=== PATIENT | female | born 1980 | race African-American/Black ===

== ENCOUNTER 2016-12-09 10:15 | Emergency (ER) | payer OTHER ==
[2016-12-09 10:48] LABS: Basophils % (Auto) 0.6 % (0.0-1.8); Eosinophils % (Auto) 3.4 % (0.0-4.3); Hematocrit 41.5 % (30.3-42.9); Hemoglobin 13.7 gm/dl (10.1-14.3); Mean Corpuscular HGB Conc 33 % (30-34); Mean Corpuscular Hemoglobin 30 pg (28-32); Mean Corpuscular Volume 92 fl (79-97); Platelet Count 263 K/mm3 (140-440); Red Blood Count 4.53 M/mm3 (3.65-5.03); Red Cell Distribution Width 13.5 % (13.2-15.2); White Blood Count 9.5 K/mm3 (4.5-11.0)
[2016-12-09 11:05] LABS: Alanine Aminotransferase 8 units/L (7-56); Albumin 3.9 g/dL (3.9-5); Albumin/Globulin Ratio 1.3 %; Alkaline Phosphatase 70 units/L (35-129); Anion Gap 14 mmol/L; Bilirubin,Total 0.3 mg/dL (0.1-1.2); Blood Urea Nitrogen 7 mg/dL (7-17); Carbon Dioxide 23 mmol/L (22-30); Chloride 102.6 mmol/L (98-107); Glucose 84 mg/dL (65-100); Potassium 3.6 mmol/L (3.6-5.0); Sodium 136 mmol/L (137-145)
[2016-12-09] MEDS ORDERED: ZOFRAN ODT PO ONE (11:44)
--- NOTE | 2016-12-09 11:52 | Emergency Department Report ---
HPI - General Chief Complaint: Weakness Time Seen by Provider: 12/09/16 11:38 - HPI HPI: This is a 35-year-old female presents to the emergency department with a one- week history of some intermittent generalized weakness and dizziness and fatigue. She is also having some intermittent episodes of nausea and vomiting. She denies any abdominal pain, headache, vision change, chest pain, shortness of breath, vaginal discharge or bleeding or dysuria. She is not taken anything for symptoms prior to presentation. The patient says she is concerned that she could be has these type of symptoms have preceded previous pregnancies. She has a history of a tubal ligation reversal from one year ago as well as a miscarriage in May 2016. Her last menstrual cycle was on November 10. She has not had a primary care doctor or [employer]. No recent travel or sick contacts at home. ED Past Medical Hx - Past Medical History Previous Medical History?: Yes Additional medical history: Miscarriage , Vaginal delivery x 3 - Surgical History Past Surgical History?: Yes Additional Surgical History: CONIZATION, Reversal of tubaligation - Social History Smoking Status: Never Smoker Substance Use Type: None - Medications Home Medications: Home Medications Medication Instructions Recorded Confirmed Last Taken Type Ibuprofen [Motrin] 600 mg PO Q8H PRN #30 tablet 11/26/14 Unknown Rx traMADol [Ultram] 50 mg PO Q6HR PRN #14 tablet 11/26/14 Unknown Rx Ondansetron [Zofran Odt] 4 mg PO Q8H PRN #10 tab.rapdis 12/09/16 Unknown Rx ED Review of Systems ROS: Stated complaint: DIZZINESS/NAUSEA/FATIGUE Other details as noted in HPI Comment: All other systems reviewed and negative Constitutional: weakness. denies: chills, fever Eyes: denies: eye pain, eye discharge, vision change ENT: denies: ear pain, throat pain Respiratory: denies: cough, shortness of breath, wheezing Cardiovascular: denies: chest pain, palpitations Gastrointestinal: nausea, vomiting Genitourinary: denies: urgency, dysuria, discharge Musculoskeletal: denies: back pain, joint swelling, arthralgia Skin: denies: rash, lesions Neurological: other (dizzy/lightheaded). denies: headache, weakness, paresthesias Physical Exam - Physical Exam Vital Signs: Vital Signs 12/09/16 10:20 Temperature 98.6 F Pulse Rate 71 Respiratory 18 Rate Blood Pressure 115/75 O2 Sat by Pulse 100 Oximetry Physical Exam: GENERAL: The patient is well-developed well-nourished. HEENT: Normocephalic. Atraumatic. Extraocular motions are intact. Patient has moist mucous membranes. Pupils equal reactive to light bilaterally. NECK: Supple. Trachea is midline. CHEST/LUNGS: Clear to auscultation. There is no respiratory distress noted. HEART/CARDIOVASCULAR: Regular. There is no tachycardia. There is no gallop rub or murmur. ABDOMEN: Abdomen is soft, nontender. Patient has normal bowel sounds. There is no abdominal distention. SKIN: There is no rash. There is no edema. There is no diaphoresis. NEURO: The patient is awake, alert, and oriented. The patient is cooperative. The patient has no focal neurologic deficits. The patient has normal speech and gait. Cranial nerves II through XII grossly intact. No pronator drift. No dysmetria. MUSCULOSKELETAL: There is no tenderness or deformity. There is no limitation range of motion. There is no evidence of acute injury. Muscle strength 5 out of 5 upper and lower semis bilaterally. ED Course Vital Signs 12/09/16 10:20 Temperature 98.6 F Pulse Rate 71 Respiratory 18 Rate Blood Pressure 115/75 O2 Sat by Pulse 100 Oximetry ED Medical Decision Making - Lab Data Result diagrams: 12/09/16 10:33 12/09/16 10:33 - EKG Data -: EKG Interpreted by Mo EKG shows normal: sinus rhythm (with sinus arrhythmia), axis, intervals, QRS complexes, ST-T waves Rate: normal - EKG Data When compared to previous EKG there are: previous EKG unavailable Interpretation: normal EKG (with sinus arrhythmia) - Medical Decision Making 35-year-old female presents with a week of nonspecific weakness and dizziness and fatigue as well as some recent nausea and vomiting. Patient was given a single dose of Zofran and the nausea has resolved and there has been no vomiting in the emergency department. EKG shows sinus arrhythmia but otherwise no signs of ischemia or ST elevation IN. The patient's labs are mostly unremarkable. Normal thyroid function. No signs of infection in the blood or urine. Patient is not and this was checked by urine and serum quantitative levels. The patient does not have any signs of neurological deficit. There is no focal, motor or sensory deficits in her cranial nerves are intact. This all could be some viral syndrome or nonspecific symptoms. The patient will be discharged home with a referral for primary care. She'll return to the ER with any worsening of her symptoms or any acute distress. - Differential Diagnosis viral syndrome, hypothyroidism, Critical Care Time: No Critical care attestation.: If time is entered above; I have spent that time in minutes in the direct care of this critically ill patient, excluding procedure time. ED Disposition Clinical Impression: Weakness, Dizziness Nausea & vomiting Qualifiers: Vomiting type: unspecified Vomiting Intractability: non-intractable Qualified Code(s): R11.2 - Nausea with vomiting, unspecified Disposition: DISCHARGED TO HOME OR SELFCARE Is pt being admited?: No Condition: Stable Instructions: Acute Nausea and Vomiting (ED), Dizziness (ED), Lightheadedness ( ED) Additional Instructions: Please follow-up with a primary care doctor the next few days. Return to the emergency department with any worsening of your symptoms or any acute distress. Prescriptions: Ondansetron [Zofran Odt] 4 mg PO Q8H PRN #10 tab.rapdis PRN Reason: Nausea Referrals: PRIMARY CARE, [Primary Care Provider] - 3-5 Days KIP FRENCH MD [Staff Physician] - 3-5 Days EPI MCCOY MD [Staff Physician] - 3-5 Days [facility] [Outside] - 3-5 Days Time of Disposition: 13:49
[2016-12-09 12:17] LABS: Bilirubin,Urine NEG (Negative); Blood,Urine MOD (Negative); Ketones,Urine NEG (Negative); Leukocyte Esterase,Urine NEG (Negative); Mucus,Urine FEW /HPF; Nitrite,Urine NEG (Negative); Protein,Urine <15 mg/dL mg/dL (Negative); Urobilinogen,Urine < 2.0 mg/dL (<2.0); WBC,Urine < 1.0 /HPF (0.0-6.0)
[2016-12-09 14:10] VITALS: BP 115/75
== END 2016-12-09 14:10 | disposition home or self-care (01) ==
LOC: ED 10:15
DX: R53.1 Weakness (principal); R42 Dizziness and giddiness; R11.2 Nausea with vomiting, unspecified
CPT/HCPCS: 36415; 80053; 81001; 81025; 84443; 84702; 85025; 93005; 93010; 99283; Q0162